=== PATIENT | female | born 1980 | race Caucasian/White ===

== ENCOUNTER 2024-11-23 00:08 | Outpatient (CLI) | payer OTHER, SELFPAY ==
--- NOTE | 2024-11-23 06:45 | DI.US_ITS ---
Exam(s) US NEEDLE LOCAL OTHER WO RAD EXAM: US NEEDLE LOCAL OTHER WO RAD CLINICAL HISTORY: Left thyroid nodule,ULTRASOUND GUIDED BX,E04.2,MULTINODULAR THYROID. COMPARISON: US US Thyroid, Soft Tissue Hd+Nck from 06/23/2024 TECHNIQUE: Ultrasound was provided for Dr. Ahmadi for guidance with performing FNA of thyroid nodule . FINDINGS: Please see procedure note for details. DATA REPOSITORY:
--- NOTE | 2024-11-23 11:30 | PAPNONF_PTH ---
PATIENT: Shanita Campbell LOC: [facility] U#:[id number] AGE/SX: 44/F ROOM: RE11/23/[address]: Martin Ahmadi MD : [id number] BED: DIS: 11/23/2024 SPEC #: [id number] RECD: 11/23/24 12:57 STATUS: FRANSICO REQ #: [id number] KAREN: 11/23/24 11:[address]: Martin Ahmadi DEPT: [facility] Cytology RECD BY: Katie Roldan ENTERED: 11/23/24 12:58 SP TYPE: JIE REYNOLDS DR: Emma Madera Tissues: 1 - BODY FLUID CYTO-FINE NEEDLE [facility]IRATE[facility] Procedures: BODY FLUID CYTO-FINE NEEDLE ASPIRATE-[facility] Comments: [id number] (PATH FNA CONSULT) (REFRIGERATED)
--- NOTE | 2024-11-23 11:46 | W.PROCNOTE ---
Date of service: 11/23/24 Time of Service: 11:47 Procedure Note Date of procedure: 11/23/24 Procedure: Ultrasound-guided FNA, left thyroid nodule, pathology present Surgeon/Proceduralist/Physician: Martin Ahmadi Procedure Diagnosis: Left-sided thyroid nodule meeting criteria for biopsy Procedure Indications: Brianna has a right sided thyroid nodule criteria for biopsy. Options were explained to patient regarding further management. She elected to undergo the above procedure. Consent was filled and signed prior to procedure. All questions were answered. Risks including bleeding, infection, and need for further treatment were discussed at length. Procedure Description: After obtaining written and verbal consent, the patient was positioned in supine position with her neck slightly extended. Ultrasound was used to localize the thyroid nodule on the left after the patient had been prepped and draped. 1% lidocaine with 1/100,000 epinephrine was injected into the skin and subcutaneous tissues overlying the medial aspect of the nodule. A 25-gauge needle was then passed repeatedly into the thyroid nodule, and cellular adequacy was verified by pathology. After ensuring adequate cellularity, 2 additional passes were made for potential Afirma testing. After ensuring adequate hemostasis, sterile dressing was applied and the patient was allowed to sit stand and ambulate. Her vital signs remained stable. She will remove the bandage after a couple of hours. She will avoid anything strenuous or straining today. She will call with any signs of infection or if she does not hear from me within 1 week with regard to pathology results. She will call with any other concerns. She may use ibuprofen or Tylenol for any discomfort. She had no further questions. She is comfortable with this plan.
== END 2024-11-23 00:28 ==
LOC: DI 00:09
PROVIDERS: PCP Nurse Practitioner; Visit Provider Otolaryngology
DX: E04.2 Nontoxic multinodular goiter (principal)
CPT/HCPCS: 10005; 76942; 88104